=== PATIENT | male | born 1985 | race Caucasian/White ===

== ENCOUNTER 2016-08-16 10:03 | Emergency (ER) ==
[2016-08-16 10:16] VITALS: BP 124/93; TEMP 96.4; BMI 34.7
[2016-08-16] MEDS ORDERED: TENIVAC IM ONE (10:30)
--- NOTE | 2016-08-16 10:34 | ED.PDOC ---
General ED Provider: Dr. CASTRO HOFF Chief Complaint: Foot Pain/Injury Stated Complaint: foot injury by nail right foot Time Seen by Physician: 10:00 Mode of Arrival: Walk-In Information Source: Patient, Family Exam Limitations: No limitations Primary Care Provider: ALICJA OLEA Nursing and Triage Documentation Reviewed and Agree: Yes Trauma/Injury Complaint Exam - Trauma Complaint/Exam Location of Pain or Injury: Reports: Other (R foot ) Onset/Duration: 1 DAY AGO STEPPED ON A NAIL PULLED IT ALL OUT Symptoms Are: Still present Initial Severity: Mild Current Severity: Mild Character: Reports: Aching Aggravating: Reports: Movement Associated Signs and Symptoms: Denies: LOC, Confusion, Memory loss, Lethargy, Vomiting, Bleeding, Bruising, Swelling, Extremity disuse, Painful respiration, Hoarseness, Dysphagia, Hemoptysis, Significant blood loss Review of Systems - Review Of Systems Constitutional: Reports: No symptoms Eyes: Reports: No symptoms Ears, Nose, Mouth, Throat: Reports: No symptoms Respiratory: Reports: No symptoms Cardiac: Reports: No symptoms GI: Reports: No symptoms : Reports: No symptoms Musculoskeletal: Reports: Other (RIGHT FOOT PAIN) Skin: Reports: No symptoms Neurological: Reports: No symptoms Endocrine: Reports: No symptoms Hematologic/Lymphatic: Reports: No symptoms All Other Systems: Reviewed and Negative Past Medical History - Past Medical History Previously Healthy: Yes Endocrine: Reports: None Cardiovascular: Reports: None Respiratory: Reports: None Hematological: Reports: None Gastrointestinal: Reports: None Genitourinary: Reports: None Neuro/Psych: Reports: None Musculoskeletal: Reports: None Cancer: Reports: None - Surgical History General Surgical History: Reports: None - Family History Family History: Reports: None - Social History Smoking Status: Current some day smoker Hx Substance Use: No Alcohol Screening: None - Immunizations Tetanus Shot up to Date: No Physical Exam - Physical Exam Appearance: Well-appearing, No pain distress, Well-nourished Eyes: ARLINE, EOMI, Conjunctiva clear ENT: Ears normal, Nose normal, Oropharynx normal Respiratory: Airway patent, Breath sounds clear, Breath sounds equal, Respirations nonlabored Cardiovascular: RRR, Pulses normal, No rub, No murmur GI/: Soft, Nontender, No masses, Bowel sounds normal, No Organomegaly Musculoskeletal: ROM intact (PUNCTURE WOUND SOLE OF RIGHT FOOT) Skin: Warm, Dry, Normal color Neurological: Sensation intact, Motor intact, Reflexes intact, Cranial nerves intact, Alert, Oriented Psychiatric: Affect appropriate, Mood appropriate Critical Care Note - Critical Care Note Total Time (mins): 0 Course - Course Orders, Labs, Meds: Orders Category Date Time Status Tetanus and Diphtheria Tox/Pf [Tenivac] MEDS 08/16/16 10:30 Once 0.5 ml IM .ONCE ONE Medications Discontinued Medications Generic Name Dose Route Start Last Admin Trade Name Freq PRN Reason Stop Dose Admin Tetanus/Diphtheria Toxoids Adsorbed 0.5 ml 08/16/16 10:30 Tenivac IM 08/16/16 10:31 .ONCE ONE Vital Signs: Temp Pulse Resp BP Pulse Ox 08/16/16 10:03 96.4 F L 62 16 124/93 H 96 Departure - Departure Time of Disposition: 10:34 Disposition: HOME SELF-CARE Discharge Problem: Injury of foot Puncture wound of foot Qualifiers: Encounter type: initial encounter Laterality: right Qualifier Code: (S91.331A) Puncture wound without foreign body, right foot, initial encounter Instructions: Puncture Wound (ED) Condition: Good Pt referred to PMD for follow-up: No Additional Instructions: YOU STEPPED ON NAIL WITH SPORT SHOES ON THESE THING CAN BECOME A MAJOR ISSUE 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 BUT THE BEST TREATMENT FOR THESE ARE OTHER CLASS OF ANTIBIOTIC WHICH I AM UNABLE TO TREAT YOU WITH DUE TO HEAVY LIFTING . Please call your Family Physician as soon as possible to schedule a follow-up appointment. Allergies/Adverse Reactions: Allergies Penicillins Adverse Reaction (Verified 08/16/16 10:15) Home Medications: Ambulatory Orders Montelukast Sodium [Singulair] 10 mg PO DAILY 08/16/16
== END 2016-08-16 11:10 | disposition home or self-care (01) ==
LOC: ED 10:03
DX: S91.331A Puncture wound without foreign body, right foot, initial encounter (principal); W45.0XXA Nail entering through skin, initial encounter; F17.210 Nicotine dependence, cigarettes, uncomplicated
CPT/HCPCS: 96372; 99283